=== PATIENT | male | born 1980 | race American Indian/Alaskan Native ===

== ENCOUNTER 2021-02-19 08:48 | Emergency (ER) | payer SELFPAY ==
--- NOTE | 2021-02-19 10:09 | Emergency Department Report ---
ED Lower Extremity HPI - General Chief Complaint: Extremity Injury, Lower Stated Complaint: LEFT ANKLE PAIN Time Seen by Provider: 02/19/21 10:02 Source: patient, EMS Mode of arrival: Wheelchair Limitations: No Limitations - History of Present Illness Initial Comments: 40-year-old -Faro[place] male presents to the emergency room ankle injury. Patient states he twisted it last night. States that he has lots of pain but has not taken anything for pain yet. Patient denies any past medical history currently takes no medications on a daily basis. Denies ever hurting that ankle in the past. MD Complaint: ankle injury -: Last night Injury: Ankle: Left Type of Injury: unknown (Twisted) Place: home Severity: severe Severity scale (0 -10): 9 Improves With: immobilization Worsens With: weight bearing Associated Symptoms: swelling, unable to bear weight - Related Data Previous Rx's Medication Instructions Recorded Last Taken Type Ibuprofen [Motrin 800 MG tab] 800 mg PO Q8HR PRN #21 tablet 02/19/21 Unknown Rx Oxycodone HCl/Acetaminophen 1 each PO Q6HR PRN #12 tablet 02/19/21 Unknown Rx [Percocet 7.5/325 mg] Allergies Allergy/AdvReac Type Severity Reaction Status Date / Time No Known Allergies Allergy Verified 02/19/21 08:51 ED Review of Systems ROS: Stated complaint: LEFT ANKLE PAIN Other details as noted in HPI Comment: All other systems reviewed and negative ED Past Medical Hx - Past Medical History Previous Medical History?: No - Surgical History Past Surgical History?: No - Medications Home Medications: Home Medications Medication Instructions Recorded Confirmed Last Taken Type Ibuprofen [Motrin 800 MG tab] 800 mg PO Q8HR PRN #21 tablet 02/19/21 Unknown Rx Oxycodone HCl/Acetaminophen 1 each PO Q6HR PRN #12 tablet 02/19/21 Unknown Rx [Percocet 7.5/325 mg] ED Physical Exam - General Limitations: No Limitations General appearance: alert, in no apparent distress - Head Head exam: Present: atraumatic, normocephalic - Eye Eye exam: Present: normal appearance - Respiratory Respiratory exam: Absent: accessory muscle use - Cardiovascular Cardiovascular Exam: Present: regular rate - Expanded Lower Extremity Exam Left Hip exam: Present: normal inspection Upper Leg exam: Present: normal inspection Knee exam: Present: normal inspection Lower Leg exam: Present: normal inspection Foot/Toe exam: Present: tenderness, swelling, erythema. Absent: full ROM Neuro vascular tendon exam: Present: no vascular compromise Gait: Positive: not tested/not observed - Back Exam Back exam: Present: normal inspection - Neurological Exam Neurological exam: Present: alert, oriented X3 - Psychiatric Psychiatric exam: Present: normal affect, normal mood - Skin Skin exam: Present: warm, dry, intact, normal color. Absent: rash ED Course Vital Signs 02/19/21 08:49 Temperature 97.9 F Pulse Rate 90 Respiratory 16 Rate Blood Pressure 138/90 [Left] O2 Sat by Pulse 98 Oximetry ED Lower Extremity MDM - Radiology Data Radiology results: report reviewed [facility] [address] [place] [address] XRay Report Signed Patient: RA MONCADA MR#: [id number] : 1980 Acct:[id number] Age/Sex: 40 / M ADM Date: 02/19/21 Loc: ED Attending Dr: Ordering Physician: WINSTON BOWLES Date of Service: 02/19/21 Procedure(s): XR ankle 3+V LT Accession Number(s): [id number] cc: WINSTON BOWLES Fluoro Time In Minutes: LEFT ANKLE 3 VIEWS INDICATION: ankle pain. COMPARISON: No relevant prior imaging study available. FINDINGS: There is an oblique spiral type fracture through the distal fibula, the fracture extends distally to the level of the ankle mortise. There is widening of the ankle mortise medially pointed medial malleolus and medial talus. There is diffuse soft tissue swelling. IMPRESSION: 1. Distal fibular fracture. 2. Widening of the ankle mortise medially. Signer Name: Alvin Boucher MD Signed: 02/19/2021 10:44 AM Workstation Name: [id number] Transcribed By: VASILE Dictated By: Alvin Boucher MD Electronically Authenticated By: Alvin Boucher MD Signed Date/Time: 02/19/21 1044 DD/ 1043 TD/TT: Print Cancel - Medical Decision Making 40-year-old -Faro[place] male presents to the emergency room ankle injury. Patient states he twisted it last night. States that he has lots of pain but has not taken anything for pain yet. Patient denies any past medical history currently takes no medications on a daily basis. Denies ever hurting that ankle in the past. X-ray of left ankle has been ordered Critical care attestation.: If time is entered above; I have spent that time in minutes in the direct care of this critically ill patient, excluding procedure time. ED Disposition Clinical Impression: Ankle fracture Qualifiers: Encounter type: initial encounter Fracture type: closed Laterality: left Qualified Code(s): S82.892A - Other fracture of left lower leg, initial encounter for closed fracture Disposition: HOME / SELF CARE / HOMELESS Is pt being admited?: No Does the pt Need Aspirin: No Condition: Stable Instructions: Ankle Fracture, [id number] Additional Instructions: Please take pain medication as needed. Is very important that you follow-up with orthopedist. Prescriptions: Ibuprofen [Motrin 800 MG tab] 800 mg PO Q8HR PRN #21 tablet PRN Reason: Pain , Severe (7-10) Oxycodone HCl/Acetaminophen [Percocet 7.5/325 mg] 1 each PO Q6HR PRN #12 tablet PRN Reason: Pain Referrals: PRIMARY CAREMD [Primary Care Provider] - 3-5 Days SHAUNA ANNE MD [Staff Physician] - 3-5 Days
--- NOTE | 2021-02-19 10:49 | XRay Report ---
LEFT ANKLE 3 VIEWS INDICATION: ankle pain. COMPARISON: No relevant prior imaging study available. FINDINGS: There is an oblique spiral type fracture through the distal fibula, the fracture extends distally to the level of the ankle mortise. There is widening of the ankle mortise medially pointed medial malleolus and medial talus. There is diffuse soft tissue swelling. IMPRESSION: 1. Distal fibular fracture. 2. Widening of the ankle mortise medially. Signer Name: Alvin Boucher MD Signed: 02/19/2021 10:44 AM Workstation Name: [id number]
[2021-02-19] MEDS ORDERED: oxyCODONE /ACETAMINOPHEN 5-325MG TAB PO ONE (10:52)
[2021-02-19 12:12] VITALS: BP 130/74
== END 2021-02-19 12:10 | disposition home or self-care (01) ==
LOC: ED 08:48
DX: S82.892A Other fracture of left lower leg, initial encounter for closed fracture (principal); W50.2XXA Accidental twist by another person, initial encounter; Y93.89 Activity, other specified; Y92.9 Unspecified place or not applicable; Y99.8 Other external cause status
CPT/HCPCS: 99283